=== PATIENT | male | born 1960 | race Caucasian/White ===

== ENCOUNTER 2018-09-05 15:42 | Emergency (ER) | payer SELFPAY ==
--- NOTE | 2018-09-05 16:12 | ED ---
Skin Complaint - HPI Summary HPI Summary: This patient is a 58 year old M presenting to [facility] with a chief complaint of a small painful cyst and his right upper arm for the past few weeks. He denies discharge, rashes, and fevers. Pain is rated 3/10 in severity. - History of Current Complaint Chief Complaint: EDRashSkinAbscess Time Seen by Provider: 09/05/18 15:58 Stated Complaint: MASS ON RIGHT ARM Hx Obtained From: Patient Onset/Duration: Started Weeks Ago Skin Exposure Onset/Duration: Weeks Ago Timing: Constant Current Severity: Mild Pain Intensity: 3 Pain Scale Used: 0-10 Numeric Skin Location: Arm - r upper Character: Raised, Painful Alleviating Symptom(s): Nothing - Additional Pertinent History Primary Care Physician: CHRIS - Allergy/Home Medications Allergies/Adverse Reactions: Allergies Allergy/AdvReac Type Severity Reaction Status Date / Time pseudoephedrine Allergy See Comment Verified 09/05/18 15:51 [From Seldane-D] terfenadine [From Seldane-D] Allergy See Comment Verified 09/05/18 15:51 PMH/Surg Hx/FS Hx/Imm Hx Endocrine/Hematology History: Denies: Hx Diabetes, Hx Systemic Lupus Erythematosus Cardiovascular History: Reports: Hx Hypertension Denies: Hx Congestive Heart Failure History: Denies: Hx Dialysis, Hx Renal Disease Musculoskeletal History: Denies: Hx Rheumatoid Arthritis Psychiatric History: Denies: Hx Eating Disorder, Hx of Violent Episodes Against Others - Cancer History Hx Chemotherapy: No - Surgical History Surgery Procedure, Year, and Place: hernia rerpair @ 4 yrs ago, right meniscus repair 02/2013 - Immunization History Date of Tetanus Vaccine: <10 years ago Date of Influenza Vaccine: Fall 2011 Infectious Disease History: No Infectious Disease History: Reports: Hx Hepatitis - Hep C Denies: Hx Human Immunodeficiency Virus (HIV), Traveled Outside the [place] in Last 30 Days - Family History Known Family History: Negative: Cardiac Disease, Diabetes, Other - rheumatoid arthritis Family History: NON CONTRIBUTORY - Social History Alcohol Use: None Alcohol Amount: 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 States 2.5 yrs sober on 08/2018 Substance Use Type: Reports: None Smoking Status (MU): Former Smoker Type: Cigarettes, Smokeless Tobacco Amount Used/How Often: 1/2 can per day Length of Time of Smoking/Using Tobacco: 37 years old Have You Smoked in the Last Year: Yes Review of Systems Negative: Fever Positive: Other - lump to right upper arm All Other Systems Reviewed And Are Negative: Yes Physical Exam - Summary Physical Exam Summary: Appearance: Well appearing, no pain distress Skin: mild swelling .5cm rt arm post, tenderness and fluctuant Head/face: normal Eyes: EOMI, SHAYNA ENT: normal Neck: supple, non-tender Respiratory: CTA, breath sounds present Cardiovascular: RRR, pulses symmetrical Abdomen: non-tender, soft Musculoskeletal: normal, strength/ROM intact Neuro: normal, sensory motor intact, A&Ox3 Triage Information Reviewed: Yes Vital Signs On Initial Exam: Initial Vitals Temp Pulse Resp BP Pulse Ox 98.2 F 63 16 174/103 98 09/05/18 15:46 09/05/18 15:46 09/05/18 15:46 09/05/18 15:46 09/05/18 15:46 Vital Signs Reviewed: Yes Procedures - Procedure Summary Procedure Summary: I&D tolerated well by patient. Pus drained and sent for cultures. - Incision and Drainage R upper arm Site: R upper arm Anesthesia: Local, Lidocaine Instrument(s): Scalpel - 11 Packing: Drain Diagnostics - Vital Signs Vital Signs Temp Pulse Resp BP Pulse Ox 09/05/18 15:46 98.2 F 63 16 174/103 98 - Laboratory Lab Statement: Any lab studies that have been ordered have been reviewed, and results considered in the medical decision making process. Course/Dx - Course Course Of Treatment: 58 year old M presenting to [facility] with a chief complaint of a small painful cyst and his right upper arm for the past few weeks. He denies discharge, rashes, and fevers. I&D performed. Procedure tolerated well by patient. Pus was drained and was collected for cultures. Patient will be discharged home with and rx for abx. Patient is instructed to follow up with surgery for removal of mass. - Differential Diagnoses - Skin Complaint Differential Diagnoses: Abscess, Cellulitis - Diagnoses Provider Diagnoses: Abscess, Dermoid cyst of right upper extremity Discharge - Sign-Out/Discharge Documenting (check all that apply): Patient Departure - discharge Patient Received Moderate/Deep Sedation with Procedure: No - Discharge Plan Condition: Stable Disposition: HOME Prescriptions: Ibuprofen TAB* [Motrin TAB* 600 MG] 600 mg PO Q8H PRN #15 tab MDD 3 PRN Reason: Pain Sulfamethox/Trimethoprim DS* [Bactrim DS 800/160 TAB*] 1 tab PO BID #20 tab Patient Education Materials: Incision and Drainage (ED) Referrals: Vlad Mccann MD [Medical Doctor] - 3 Days (Follow up with this surgeon for cyst removal. ) Additional Instructions: RETURN TO THE EMERGENCY DEPARTMENT FOR CHANGING OR WORSENING SYMPTOMS. - Billing Disposition and Condition Condition: STABLE Disposition: Home - Attestation Statements Document Initiated by Scribe: Yes Documenting Scribe: Laney Vasques Provider For Whom Scribe is Documenting (Include Credential): Celestino Lyon MD Scribe Attestation: Laney Estrada, scribed for Celestino Lyon MD on 09/05/18 at 1856. Scribe Documentation Reviewed: Yes Provider Attestation: The documentation as recorded by the Laney conrad accurately reflects the service I personally performed and the decisions made by Celestino smyth MD Status of Scribe Document: Viewed
[2018-09-05] MEDS ORDERED: Sulfamethox/Trimethoprim DS 800/160* TAB PO ONE (16:25)
[2018-09-05] MEDS ORDERED: Ibuprofen TAB* 600 MG PO ONE (16:25)
[2018-09-05 17:06] VITALS: BP 148/81
== END 2018-09-05 17:06 | disposition home or self-care (01) ==
LOC: ED 15:42
DX: L02.413 Cutaneous abscess of right upper limb (principal); D23.61 Other benign neoplasm of skin of right upper limb, including shoulder; Z88.8 Allergy status to other drugs, medicaments and biological substances; Z87.891 Personal history of nicotine dependence
CPT/HCPCS: 10060; 87070; 87205; 99281; A9270-GY

== ENCOUNTER 2021-05-04 19:25 | Inpatient (IN) ==
[2021-05-04] MEDS ORDERED: NS 0.9% 1000 ml BAG 1,000 ML IV ONE (20:10)
[2021-05-04] MEDS ORDERED: Lorazepam PYXIS KEY PRN (20:34)
[2021-05-04] MEDS ORDERED: LORazepam 2 mg VIAL 1 ml IV PUSH ONE (20:34)
[2021-05-04 20:58] LABS: ABS Eosinophils 0.1 10^3/ul (0-0.6); ABS Lymphocytes 2.3 10^3/ul (1.0-4.8); ABS Monocytes 0.5 10^3/ul (0-0.8); ABS Neutrophils 2.4 10^3/ul (1.5-7.7); Eosinophil % 2.1 %; Hematocrit 43 % (42-52); Hemoglobin 14.6 g/dL (14.0-18.0); Lymphocyte % 42.8 %; Mean Corpuscular HGB Conc 34 g/dL (31-36); Mean Corpuscular Hemoglobin 31 pg (27-31); Mean Corpuscular Volume 91 fL (80-94); Mean Platelet Volume 6.9 fL (7.4-10.4); Platelet Count 303 10^3/uL (150-450); Red Blood Count 4.72 10^6 /uL (4.18-5.48); Red Cell Distribution Width 14 % (10-15); White Blood Count 5.4 10^3/uL (3.5-10.8)
[2021-05-04 21:13] LABS: Urine Appearance Clear; Urine Bilirubin Negative (Negative); Urine Blood 1+ (Negative); Urine Color Colorless; Urine Glucose Negative (Negative); Urine Ketones Negative (Negative); Urine Nitrite Negative (Negative); Urine Protein Negative (Negative); Urine Specific Gravity 1.002 (1.002-1.030); Urine Urobilinogen Negative (Negative)
[2021-05-04 21:18] LABS: ALT 19 U/L (7-52); AST 21 U/L (13-39); Albumin/Globulin Ratio 1.4 (1-3); Alkaline Phosphatase 40 U/L (35-149); Anion Gap 9 mmol/L (2-11); Blood Urea Nitrogen 8 mg/dL (6-24); CO2 Carbon Dioxide 26 mmol/L (22-32); Calcium 9.5 mg/dL (8.6-10.3); Chloride 101 mmol/L (101-111); Globulin 3.6 g/dL (2-4); Glucose 92 mg/dL (70-100); Potassium 3.8 mmol/L (3.5-5.0); Sodium 136 mmol/L (135-145); Total Protein 8.6 g/dL (6.4-8.9)
[2021-05-04 21:19] LABS: Acetaminophen < 15 mcg/mL; Alcohol, S 297 mg/dL (<13); Salicylate < 2.50 mg/dL (<30)
[2021-05-04 21:20] LABS: Urine Bacteria Absent (Absent); Urine Red Blood Cell Trace(0-2/hpf) (Absent); Urine White Blood Cell Absent (Absent)
[2021-05-04 21:32] LABS: Urine Benzodiazepine Screen None Detected (None Detect); Urine Cannabinoids Screen None Detected (None Detect); Urine Opiates Screen None Detected (None Detect)
[2021-05-04 21:33] LABS: TSH Ultra Thyroid Stim Horm 1.65 mcIU/mL (0.34-5.60)
[2021-05-05] MEDS ORDERED: Al Hydrox/Mg Hydrox/Simet LIQ 30 ML UDC PO PRN (05:47)
[2021-05-05] MEDS ORDERED: LORazepam PO 0-6 for WAM protocol PO SCH (06:00)
[2021-05-05] MEDS ORDERED: Nicotine GUM 2MG FRUIT FLAVOR PO PRN (06:00)
[2021-05-05 06:22] LABS: Rapid COVID-19 Molecular Undetected (Undetected)
[2021-05-05] MEDS: Nicotine PATCH 21 MG/24 HR PATCH TRANSDERM SCH (09:18)
[2021-05-05] MEDS: Vitamin THERAPEUTIC TAB PO SCH (09:18)
[2021-05-05] MEDS: Folic Acid TAB* 1 MG DAILY PO SCH (09:18)
[2021-05-05] MEDS: Thiamine TAB* 100 MG TAB DAILY (@ T+1) PO SCH (09:18)
[2021-05-06 08:17] LABS: HDL Cholesterol 71.3 mg/dL
[2021-05-06] MEDS: Thiamine TAB* 100 MG TAB DAILY (@ T+1) PO SCH (08:29)
[2021-05-06] MEDS: Folic Acid TAB* 1 MG DAILY PO SCH (08:29)
[2021-05-06] MEDS: Nicotine PATCH 21 MG/24 HR PATCH TRANSDERM SCH (08:29)
[2021-05-06] MEDS: Vitamin THERAPEUTIC TAB PO SCH (08:29)
[2021-05-07] MEDS: Folic Acid TAB* 1 MG DAILY PO SCH (07:22)
[2021-05-07] MEDS: Nicotine PATCH 21 MG/24 HR PATCH TRANSDERM SCH (07:22)
[2021-05-07] MEDS: Vitamin THERAPEUTIC TAB PO SCH (07:22)
[2021-05-07] MEDS: Thiamine TAB* 100 MG TAB DAILY (@ T+1) PO SCH (07:22)
[2021-05-08] MEDS: Thiamine TAB* 100 MG TAB DAILY (@ T+1) PO SCH (08:29)
[2021-05-08] MEDS: Vitamin THERAPEUTIC TAB PO SCH (08:29)
[2021-05-08] MEDS: Nicotine PATCH 21 MG/24 HR PATCH TRANSDERM SCH (08:29)
[2021-05-08] MEDS: Folic Acid TAB* 1 MG DAILY PO SCH (08:29)
[2021-05-08 09:05] VITALS: BP 141/85
== END 2021-05-08 12:45 | disposition home or self-care (01) | DRG 772 ==
LOC: ED 19:25 → BSU 05-05 08:03
PROVIDERS: ADMIT Psychiatry & Neurology Psychiatry; ATTEND Psychiatry & Neurology Psychiatry

== ENCOUNTER 2024-06-30 14:55 | Observation (INO) ==
[2024-06-30 15:13] LABS: ABS Basophils 0.1 10^3/uL (0.0-0.1); ABS Eosinophils 0.2 10^3/uL (0.0-0.5); ABS Lymphocytes 1.9 10^3/uL (1.0-4.8); ABS Monocytes 0.5 10^3/uL (0.0-1.1); ABS Neutrophils 3.3 10^3/uL (1.5-7.6); ABS Nucleated RBC 0.01 10^3/ul; Eosinophil % 3.6 %; Hematocrit 41.7 % (38-53); Hemoglobin 14.2 g/dL (13.2-16.3); Lymphocyte % 31.7 %; Mean Corpuscular Hemoglobin 29.2 pg (27-33); Mean Platelet Volume 7.4 fL (7.5-11.2); Nucleated Red Blood Cells % 0.2 %/100WBC (0.0-0.8); Platelet Count 267 10^3/uL (150-450); Red Blood Count 4.84 10^6/uL (4.06-5.63); Red Cell Distribution Width 14.1 % (12-17); White Blood Count 5.9 10^3/uL (3.6-10.2)
[2024-06-30 15:19] LABS: INR 1.04 (0.85-1.14)
[2024-06-30 16:12] LABS: Albumin 4.5 g/dL (3.5-5.7); Albumin/Globulin Ratio 1.5 (1-3); Calcium 8.8 mg/dL (8.6-10.3); Creatinine, Serum 1.01 mg/dL (0.67-1.17); Total Bilirubin 0.6 mg/dL (0.2-1.0); Total Protein 7.5 g/dL (6.4-8.9); eGFR CKD-EPI 84.1 (>60)
[2024-06-30 16:22] LABS: Potassium 4.1 mmol/L (3.5-5.0)
[2024-06-30 16:45] LABS: High Sensitivity Troponin 1 Hr 7 pg/mL (<20)
[2024-06-30] MEDS: Enoxaparin 40 MG/0.4 ML SYR SUBCUT SCH (20:03)
[2024-06-30 20:59] LABS: HDL Cholesterol 40.4 mg/dL
[2024-07-01] MEDS ORDERED: Regadenoson 0.4 MG/5 ML SYRINGE ONE (09:00)
[2024-07-01] MEDS ORDERED: Aminophylline 25 MG/ML VIAL ONE (09:00)
[2024-07-01 14:15] VITALS: BP 175/105
== END 2024-07-01 15:34 | disposition home or self-care (01) ==
LOC: EDHOLD 14:55 → ED 14:55 → SUATTDRO 18:23 → MEDTELE 22:02
PROVIDERS: ADMIT Internal Medicine; ATTEND Student in an Organized Health Care Education/Training Program